=== PATIENT | female | born 1995 | race Caucasian/White ===

== ENCOUNTER 2020-04-19 16:51 | Inpatient (IN) | payer BC, OTHER ==
[2020-04-19 17:47] VITALS: BMI 38.2
[2020-04-19] MEDS ORDERED: hydrALAZINE 20 MG/ML VIAL SLOW IVP PRN (18:29)
[2020-04-19] MEDS ORDERED: Ondansetron PF 4 MG/2 ML Vial IVP PRN (18:38)
[2020-04-19] MEDS ORDERED: Promethazine HCl 25 MG/ML VIAL IM PRN (18:38)
[2020-04-19] MEDS ORDERED: Acetaminophen 500 MG TAB PO PRN (18:38)
[2020-04-19 19:13] LABS: Creatinine, Urine 129.8 mg/dL (47-110)
--- NOTE | 2020-04-19 19:13 | PDOC.LDHP ---
Labor and Delivery H&P Chief complaint: other (elevated BP) HPI: 24 y/o G1 at 35w0d, patient of Cathleen Neal, sent from clinic for elevated BPs. Patient was seen by dentist this afternoon and had systolic in 160s and was sent in by Cathleen for evaluation. Denies PIH sx, VB, LOF, ctx, or other concerns. +FM ROS neg for HEENT, cv, pulm, gi, gu, neuro, psych, skin, musculoskeletal, or constitutional symptoms other than mentioned above. OB History Details: 1st Current complications: none Past Medical History: None Current medications: pre-renetta vitamins Previous surgical history: none Allergies/Adverse Reactions: Allergies Allergy/AdvReac Type Severity Reaction Status Date / Time No Known Allergies Allergy Unverified 04/19/20 17:49 Social history: none - Physical Exam Abnormal vital signs: first severe range BP, repeats mild range General: NAD, resting Lungs: nonlabored breathing Abdomen: gravid Extremeties: no edema FHT: category 1 (130s, mod variability, +accels, no decels) [place] contractions every: none - Assessment 89 y/o G1 at 35w0d with new onset elevated BPs. Mostly mild range with occasional severe range. status reassuring with reactive NST. - Plan Plan: admit to L&D, informed consent obtained -: - Steroids for lung maturity - Continue to monitor BPs, if persistently severe range, will recommend induction with magnesium for seizure prophylaxis. - PIH labs pending
[2020-04-19 19:33] LABS: #Basophils 0.1 thou/uL (0.0-0.2); #Eosinphils 0.1 thou/uL (0.0-0.7); #Lymphocytes 2.4 thou/uL (1.20-3.40); #Monocytes 0.9 thou/uL (0.11-0.59); #Neutrophils 9.1 thou/uL (1.40-6.50); %Basophils 0.5 % (0.0-1.0); %Lymphocytes 19.1 % (21.0-51.0); %Monocytes 6.9 % (0.0-10.0); %Neutrophils 72.5 % (42.0-75.0); Hemoglobin 12.5 g/dL (12.0-16.0); Mean Corpuscular HGB CONC 34.8 g/dL (32.0-36.0); Mean Corpuscular Hemoglobin 32.8 pg (27.0-31.0); Mean Corpuscular Volume 94.2 fL (78.0-98.0); Mean Platelet Volume 8.8 fL (7.4-10.4); Platelet Count 272 thou/uL (130-400); Red Blood Cell (RBC) Count 3.83 mill/uL (4.20-5.40); White Blood Cell (WBC) Count 12.6 thou/uL (4.8-10.8)
[2020-04-19 19:55] LABS: ALT (SGPT) 11 U/L (8-55); AST (SGOT) 14 U/L (5-34); Albumin 3.5 g/dL (3.5-5.0); Alkaline Phosphatase 115 U/L (40-110); Anion Gap 16 mmol/L (10-20); BUN (Urea Nitrogen) 11 mg/dL (7.0-18.7); Bilirubin, Total 0.2 mg/dL (0.2-1.2); Calc. Creatinine Clearance 182 mL/min (70-130); Calcium 8.9 mg/dL (7.8-10.44); Carbon Dioxide 19 mmol/L (22-29); Chloride 107 mmol/L (98-107); Estimated GFR-MDRD 90; Globulin 3.3 g/dL (2.4-3.5); Glucose 98 mg/dL (70-105); Potassium 3.9 mmol/L (3.5-5.1); Protein, Total 6.8 g/dL (6.0-8.3); Sodium 138 mmol/L (136-145)
[2020-04-19] MEDS: Betamet Acet/Betamet Na Ph 30 MG/5 ML VIAL IM SCH (20:02)
[2020-04-19 20:12] LABS: HBSAg Index 0.19 S/CO (0-0.99); Hep B Surf Ag Non-Reactive S/CO (NonReactive)
[2020-04-19 20:12] LABS: Syphilis Antibody Nonreactive (Nonreactive); Syphilis Antibody Index 0.04 S/CO (<1.00 Non-Reactive)
--- NOTE | 2020-04-20 07:33 | PDOC.BPN ---
- Brief Progress Note Encounter Date: 04/20/20 Encounter Time: 07:31 S: Patient feeling well this morning. Denies STEELE, vision changes, RUQ pain, VB, LOF, ctx, or decreased FM. Slept well. O: normal to mild range BPs overnight. Had 2 isolated severe range BPs since arrival. Gen - AAO, NAD Abd - gravid, NTTP Ext - 1+ pitting edema Labs unremarkable Protein/Creatinine 0.11 A/P: 24 y/o G1 at 35w1d with GHTN. BPs stable overnight but will continue to monitor this morning now that she is awake, given her severe range BPs yesterday. 2nd dose of steroids due later today.
--- NOTE | 2020-04-20 08:08 | PDOC.BPN ---
- Brief Progress Note Encounter Date: 04/20/20 Encounter Time: 08:07 Discussed with team. Given severe range BPs yesterday, now has steroids on board and favorable cervix, will start IOL for severe GHTN.
[2020-04-20] MEDS: Betamet Acet/Betamet Na Ph 30 MG/5 ML VIAL IM SCH (08:53)
[2020-04-20] MEDS ORDERED: Diphenoxylate HCl/Atropine Tablet PO PRN ×2 (09:29)
[2020-04-20] MEDS ORDERED: HYDROcodone/Acetaminophen 5/325 mg Tablet PO PRN ×2 (09:29)
[2020-04-20] MEDS ORDERED: Butorphanol Tartrate 1 MG/ML VIAL SLOW IVP PRN (09:29)
[2020-04-20] MEDS ORDERED: Misoprostol 200 MCG TAB PR PRN (09:29)
[2020-04-20] MEDS ORDERED: hydrALAZINE 20 MG/ML VIAL SLOW IVP PRN (09:29)
[2020-04-20] MEDS ORDERED: Ibuprofen 800 MG TAB PO PRN (09:29)
[2020-04-20] MEDS ORDERED: Lidocaine 1% (PF) 30 ML VIAL SC PRN (09:29)
[2020-04-20] MEDS ORDERED: Carboprost 250 MCG/ML AMP IM PRN (09:29)
[2020-04-20] MEDS ORDERED: NS / Oxytocin 40 units/1000ml 1,000 ML IV PRN (09:29)
[2020-04-20] MEDS ORDERED: Promethazine HCl 25 MG/ML VIAL IM PRN (09:29)
[2020-04-20] MEDS ORDERED: Penicillin G Potassium 5 MILL.UNITS in Sodium Chloride 0.9% 100 ML IVPB SCH (09:30)
[2020-04-20] MEDS ORDERED: NS w/ Oxytocin 10 units 500 ML IV SCH (09:30)
[2020-04-20] MEDS: Lactated Ringer's 1,000 ML IV SCH ×3 (10:16→22:01)
[2020-04-20 10:32] LABS: Hemoglobin 12.7 g/dL (12.0-16.0); Mean Corpuscular HGB CONC 34.1 g/dL (32.0-36.0); Mean Corpuscular Hemoglobin 32.2 pg (27.0-31.0); Mean Corpuscular Volume 94.5 fL (78.0-98.0); Mean Platelet Volume 8.9 fL (7.4-10.4); Platelet Count 304 thou/uL (130-400); RBC Distribution Width 11.9 % (11.5-14.5); Red Blood Cell (RBC) Count 3.95 mill/uL (4.20-5.40); White Blood Cell (WBC) Count 15.1 thou/uL (4.8-10.8)
[2020-04-20 11:09] LABS: HBSAg Index 0.24 S/CO (0-0.99); Hep B Surf Ag Non-Reactive S/CO (NonReactive); Syphilis Antibody Nonreactive (Nonreactive); Syphilis Antibody Index 0.04 S/CO (<1.00 Non-Reactive)
--- NOTE | 2020-04-20 12:01 | PDOC.BPN ---
- Brief Progress Note Encounter Date: 04/20/20 Encounter Time: 11:55 24 y.o at 35w 1 day with GHTN. Severe range pressures last night and now are mild range 140/90s IOL for GHTN - favorable cervix with a rosen score of 7, proceed with pitocin for IOL Discussed need for MgSo4 with OB Hospitalist and due to only mild range pressures currently, Magnesium was not started. If the patient has ANY severe range pressures through the day we will start magnesium. FHT Cat 1, Moderate variability, +Accels, no decels I have discussed the risks, alternative, and benefits with the patient who agrees on Plan of care and voices understanding. .
[2020-04-20 12:02] LABS: SARS-CoV-2 MS2 Positive; SARS-CoV-2 N Gene Negative; SARS-CoV-2 S Gene Negative; SARS-CoV-2 by NAA Not Detected (NotDetected); SARS-CoV-2 orf1ab Negative
[2020-04-20] MEDS: Penicillin G 2.5 MILL.units 2.5 MILL.UNITS in Premix Bag 1 BAG IVPB SCH ×3 (14:12→22:06)
--- NOTE | 2020-04-20 16:00 | PDOC.BPN ---
- Brief Progress Note Encounter Date: 04/20/20 Encounter Time: 15:59 AROM clear fluid. /2.
[2020-04-20] MEDS ORDERED: Lidocaine 1% (PF) 30 ML VIAL ONE ×2 (16:54→22:48)
[2020-04-20] MEDS ORDERED: NS / Oxytocin 40 units/1000ml 0 ML ONE (16:54)
[2020-04-20] MEDS: Ondansetron PF 4 MG/2 ML Vial IVP PRN ×2 (19:30→23:03)
[2020-04-20] MEDS ORDERED: NS / Oxytocin 40 units/1000ml 1,000 ML ONE (22:48)
--- NOTE | 2020-04-21 01:09 | PDOC.OPDEL ---
OB Operative/Delivery Note Delivery Dr/Surgeon: gloria jackson Pre-Delivery Diagnosis: medically indicated induction Procedure/Post Delivery Dx: spontaneous vaginal delivery Weeks gestation: 35 Anesthesia: none - Additional Findings/Plan Placenta delivered: spontaneous Repaired Obstetrical Laceration: 1st degree Estimated blood loss: 150mL Post delivery plan: routine recovery
[2020-04-21] MEDS ORDERED: Bisacodyl 10 MG SUPP PR PRN (04:06)
[2020-04-21] MEDS ORDERED: NS / Oxytocin 40 units/1000ml 1,000 ML IV SCH (04:06)
[2020-04-21] MEDS ORDERED: Benzocaine-Menthol 82.5 ML CAN TOP PRN (04:06)
[2020-04-21] MEDS ORDERED: Milk Of Magnesia 30 ML UDCUP PO PRN (04:06)
[2020-04-21] MEDS ORDERED: HYDROcodone/Acetaminophen 5/325 mg Tablet PO PRN ×2 (04:06)
[2020-04-21] MEDS ORDERED: hydrALAZINE 20 MG/ML VIAL SLOW IVP PRN (04:06)
[2020-04-21] MEDS: Ibuprofen 800 MG TAB PO SCH ×2 (06:40→16:09)
[2020-04-21] MEDS: Penicillin G 2.5 MILL.units 2.5 MILL.UNITS in Premix Bag 1 BAG IVPB SCH (07:56)
[2020-04-21] MEDS: Ferrous Sulfate 325 MG TAB PO SCH ×2 (07:57→16:11)
[2020-04-21] MEDS ORDERED: Adacel (T-DAP) 0.5 ML SYRINGE IM ONE (09:00)
[2020-04-21] MEDS: Prenatal Vitamin 1 TAB PO SCH (10:47)
[2020-04-21] MEDS: Docusate Calcium (SURFAK) 240 MG CAP PO SCH ×2 (10:48→21:28)
[2020-04-22] MEDS: Ibuprofen 800 MG TAB PO SCH ×4 (00:23→20:58)
[2020-04-22] MEDS: Docusate Calcium (SURFAK) 240 MG CAP PO SCH ×2 (09:55→20:58)
[2020-04-22] MEDS: Prenatal Vitamin 1 TAB PO SCH (09:55)
[2020-04-22] MEDS: Ferrous Sulfate 325 MG TAB PO SCH ×2 (09:55→17:29)
[2020-04-23] MEDS: Ibuprofen 800 MG TAB PO SCH (06:15)
--- NOTE | 2020-04-23 06:23 | PDOC.PP ---
Post Progress Note Post Day #: 2 Subjective: Doing well PO intake tolerated: yes Flatus: yes Ambulation: yes Vital Signs (12 hours) Temp Pulse Resp BP Pulse Ox 04/23/20 00:16 97.7 F 81 18 126/71 99 04/22/20 19:55 97.7 F 101 H 18 144/81 H 97 Weight Weight 230 lb Past Vitals reviewed - Physical Examination General: NAD Cardiovascular: no m/r/g Respiratory: non-labored breathing Abdominal: no distention, appropriately TTP Extremities: negative homans (B) Neurological: no gross focal deficits Psychiatric: A&Ox3, normal affect Result Diagrams: 04/20/20 10:01 04/19/20 19:17 Additional Labs: Post Labs Hep Bs Antigen Non-Reactive S/CO (NonReactive) 04/20/20 10:01 Blood Type A POSITIVE 04/19/20 19:38 (1) Vaginal delivery Code(s): O80 - ENCOUNTER FOR FULL-TERM UNCOMPLICATED DELIVERY Status: Acute - Assessment/Plan PPD2 doing well. OK for DC. If baby not ready, may bed and breakfast
[2020-04-23] MEDS: Ferrous Sulfate 325 MG TAB PO SCH (08:29)
[2020-04-23] MEDS: Docusate Calcium (SURFAK) 240 MG CAP PO SCH (09:57)
[2020-04-23] MEDS: Prenatal Vitamin 1 TAB PO SCH (09:57)
[2020-04-23 10:05] VITALS: BP 129/78; TEMP 98.5
== END 2020-04-23 15:42 | disposition home or self-care (01) | DRG 807 ==
LOC: L&D/OP 16:51 → L&D 18:41 → 3SW 04-21 04:21
PROVIDERS: ADMIT Obstetrics & Gynecology; ATTEND Obstetrics & Gynecology
PROC: 10E0XZZ Delivery of Products of Conception, External Approach (ICD-10-PCS; principal; 2020-04-21)
PROC: 10907ZC Drainage of Amniotic Fluid, Therapeutic from Products of Conception, Via Natural or Artificial Opening (ICD-10-PCS; 2020-04-21)
PROC: 3E033VJ Introduction of Other Hormone into Peripheral Vein, Percutaneous Approach (ICD-10-PCS; 2020-04-21)
PROC: 0HQ9XZZ Repair Perineum Skin, External Approach (ICD-10-PCS; 2020-04-21)
DX: O13.4 Gestational [pregnancy-induced] hypertension without significant proteinuria, complicating childbirth (principal); Z37.0 Single live birth; Z3A.35 35 weeks gestation of pregnancy; O70.0 First degree perineal laceration during delivery; O60.14X0 Preterm labor third trimester with preterm delivery third trimester, not applicable or unspecified; Z20.828 Contact with and (suspected) exposure to other viral communicable diseases
CPT/HCPCS: 36415; 80053; 82570; 84156; 85025; 85027; 86780; 86850; 86900; 86901; 87081; 87340; 87635; 99285; J0702; J2001; J2405; J2540; J2590; J3490; U0003